=== PATIENT | female | born 2000 | race American Indian/Alaskan Native ===

== ENCOUNTER 2022-05-07 21:08 | Emergency (ER) | payer OTHER ==
[2022-05-07] MEDS ORDERED: ACETAMINOPHEN 325 MG TAB PO PRN (21:28)
[2022-05-07 23:07] LABS: Basophils % (Auto) 0.2 % (0.0-1.8); Eosinophils % (Auto) 0.3 % (0.0-4.3); Hematocrit 39.8 % (30.3-42.9); Hemoglobin 12.5 gm/dl (10.1-14.3); Lymphocytes # (Auto) 0.5 K/mm3 (1.2-5.4); Lymphocytes % (Auto) 6.6 % (13.4-35.0); Mean Corpuscular HGB Conc 31 % (30-34); Mean Corpuscular Volume 91 fl (79-97); Monocytes # (Auto) 0.6 K/mm3 (0.0-0.8); Monocytes % (Auto) 8.1 % (0.0-7.3); Platelet Count 236 K/mm3 (140-440)
[2022-05-07 23:26] LABS: Alanine Aminotransferase 8 units/L (7-56); Albumin 4.9 g/dL (3.9-5); Blood Urea Nitrogen 11 mg/dL (7-17); Calcium 9.6 mg/dL (8.4-10.2); Hemolysis Index 31
[2022-05-07 23:33] LABS: BUN/Creatinine Ratio 16
[2022-05-08 01:38] LABS: Bilirubin,Urine NEG (Negative); Blood,Urine NEG (Negative); Color,Urine Straw (Yellow); Protein,Urine <15 mg/dL mg/dL (Negative); Urobilinogen,Urine < 2.0 mg/dL (<2.0)
[2022-05-08] MEDS: IBUPROFEN 600 MG TAB PO ONE (01:41)
[2022-05-08 01:46] LABS: Bacteria,Urine 1+ /HPF (Negative); Mucus,Urine FEW /HPF
--- NOTE | 2022-05-08 04:40 | Emergency Department Report ---
ED Fever HPI - General Chief Complaint: Fever Stated Complaint: FEVER Source: patient Exam Limitations: no limitations - History of Present Illness Initial Comments: Patient is a 22-year-old -[place] female with no past medical history except kidney stones who presents to the ED with complaint of acute onset persistent diffuse body aches and pains, intermittent fever and chills with mild dry cough and nasal congestion for the last 12 hours. Patient states that she has not taken any medications but that she [facility] and would like a COVID 19 diagnostic tests performed to ascertain whether she has COVID 19 infection. Patient states that this is a condition for her continued stay at the longterm. Patient denies dizziness, syncope, nausea and vomiting, chest pain and shortness of breath, abdominal pain, diarrhea, dysuria, urinary frequency and urgency, change in vision or vaginal bleeding. Timing/Duration: this morning, constant Fever Severity/Quality: subjective, low grade Fever Therapy [employer]PECTOR: none Associated Symptoms: denies symptoms, cough, headache, muscle aches. denies: abdominal pain, chest pain, confusion, diaphoresis, nausea/vomiting, rash, shortness of breath, sore throat, stiff neck, syncope, weakness ED Review of Systems ROS: Stated complaint: FEVER Other details as noted in HPI Constitutional: chills, fever, malaise, weakness Eyes: denies: eye pain, eye discharge, vision change ENT: congestion. denies: ear pain, throat pain Respiratory: cough. denies: shortness of breath, wheezing Cardiovascular: denies: chest pain, palpitations Endocrine: no symptoms reported Gastrointestinal: denies: abdominal pain, nausea, vomiting, diarrhea Genitourinary: denies: urgency, dysuria, discharge Musculoskeletal: denies: back pain, joint swelling, arthralgia Skin: denies: rash, lesions Neurological: headache. denies: weakness, paresthesias Psychiatric: anxiety. denies: depression Hematological/Lymphatic: denies: easy bleeding, easy bruising ED Past Medical Hx - Past Medical History Additional medical history: Kidney Stones - Social History Smoking Status: Former Smoker - Medications Home Medications: Home Medications Medication Instructions Recorded Confirmed Last Taken Type Ibuprofen [Motrin] 600 mg PO Q8H PRN #30 tablet 05/08/22 Unknown Rx ED Physical Exam - General Limitations: No Limitations General appearance: alert, in no apparent distress - Head Head exam: Present: atraumatic, normocephalic, normal inspection - Eye Eye exam: Present: normal appearance, PERRL, EOMI Pupils: Present: normal accommodation - ENT ENT exam: Present: normal exam, normal orophraynx, mucous membranes moist, TM's normal bilaterally, normal external ear exam - Neck Neck exam: Present: normal inspection, full ROM. Absent: tenderness - Respiratory Respiratory exam: Present: normal lung sounds bilaterally. Absent: respiratory distress, wheezes, rales, rhonchi, chest wall tenderness, accessory muscle use, decreased breath sounds, prolonged expiratory - Cardiovascular Cardiovascular Exam: Present: normal rhythm, tachycardia, normal heart sounds. Absent: systolic murmur, diastolic murmur, rubs, gallop - GI/Abdominal GI/Abdominal exam: Present: soft, normal bowel sounds. Absent: tenderness, guarding, rebound, hyperactive bowel sounds, hypoactive bowel sounds, organomegaly, mass - Extremities Exam Extremities exam: Present: normal inspection, full ROM, normal capillary refill. Absent: tenderness - Back Exam Back exam: Present: normal inspection, full ROM. Absent: tenderness, CVA tenderness (R), CVA tenderness (L), muscle spasm, paraspinal tenderness, ve rtebral tenderness, rash noted - Neurological Exam Neurological exam: Present: alert, oriented X3, CN II-XII intact, normal gait, reflexes normal - Psychiatric Psychiatric exam: Present: normal affect, normal mood, anxious - Skin Skin exam: Present: warm, dry, intact, normal color. Absent: rash ED Course Vital Signs 05/07/22 21:21 Temperature 100.3 F H Pulse Rate 111 H Respiratory 16 Rate Blood Pressure 94/63 O2 Sat by Pulse 99 Oximetry ED Medical Decision Making - Lab Data Result diagrams: 05/07/22 22:53 05/07/22 22:53 - Radiology Data Radiology results: report reviewed, image reviewed - Medical Decision Making This is a 22-year-old -[place] female with no past medical history except kidney stones who presents to the ED with complaint of acute onset persistent diffuse body aches and pains, intermittent fever and chills with mild dry cough and nasal congestion for the last 12 hours. Patient states that she has not taken any medications but that she lives at [facility] and would like a COVID 19 diagnostic tests performed to ascertain whether she has COVID 19 infection. Patient states that this is a condition for her continued stay at the longterm. In the ED, patient is alert and oriented x3 and is not in any distress but febrile and tachycardic in triage. Patient was treated in the ED for fever. Lab test results were reviewed and are all nonactionable including rapid influenza and rapid strep test. Urinalysis unremarkable. On reevaluation, patient's fever resolved, tachycardia also resolved. Patient was discharged home on antipyretic prescription and advised to obtain her COVID-19 diagnosis test at any of the outpatient facilities including urgent care centers in the local area. Patient was advised that should she test positive for COVID-19 viral infection she needs to self quarantine at home for 5 days as per CDC recommendations. Patient was advised to return to the ED immediately if symptoms get worse. Patient was otherwise advised to follow-up with her primary care physician in 7 to 10 days for reevaluation. - Differential Diagnosis Influenza; strep pharyngitis; COVID-19; pneumonia; UTI; URI; Critical care attestation.: If time is entered above; I have spent that time in minutes in the direct care of this critically ill patient, excluding procedure time. ED Disposition Clinical Impression: Fever and chills, Viral upper respiratory tract infection with cough, Suspected COVID-19 virus infection Disposition: 01 HOME / SELF CARE / HOMELESS Is pt being admited?: No Does the pt Need Aspirin: No Condition: Stable Instructions: Fever, Adult, [id number], Viral Respiratory Infection, [id number], Upper Respiratory Infection, Adult, [id number] Additional Instructions: Follow-up test results were reviewed and are on actionable. Therefore get tested for COVID-19 viral infection at any of the outpatient facilities including urgent cares or at [facility] or [facility] pharmacies. Take medication as needed for fever and drink plenty of fluids. If positive for COVID-19 viral infection, self quarantine at home for 5 days. Otherwise follow-up with your primary care physician in 7 to 10 days for reevaluation. Prescriptions: Ibuprofen [Motrin] 600 mg PO Q8H PRN #30 tablet PRN Reason: Pain Referrals: PITA MCDUFFIE MD [Primary Care Provider] - 3-5 Days Forms: Work/School Release Form(ED) Time of Disposition: 04:42 Print Language: CROATIAN
[2022-05-08 05:06] VITALS: BP 108/71
== END 2022-05-08 05:06 | disposition home or self-care (01) ==
LOC: ED 21:08
DX: J06.9 Acute upper respiratory infection, unspecified (principal); R50.9 Fever, unspecified; R05.9 Cough, unspecified; Z20.822 Contact with and (suspected) exposure to COVID-19; Z87.891 Personal history of nicotine dependence
CPT/HCPCS: 36415; 80053; 81001; 85025; 87116; 87430; 99283; 87502